=== PATIENT | male | born 2000 | race African-American/Black ===

== ENCOUNTER 2023-06-23 14:16 | Emergency (ER) | payer SELFPAY ==
[~2023-06-23] VITALS: Ht 193 cm; Wt 86.2 kg
[2023-06-23 14:35] VITALS: BP 130/90; PULSE 75; RESP 18; TEMP 98; O2SAT 96
[2023-06-23] MEDS ORDERED: VIB100 PO (15:23)
[2023-06-23 15:33] LABS: APPEARANCE,URINE CLEAR (CLEAR); BILIRUBIN,URINE NEGATIVE (NEGATIVE); BLOOD, URINE NEGATIVE (NEGATIVE); COLOR,URINE YELLOW (YELLOW); LEUKOCYTE ESTERASE ,URINE TRACE (NEGATIVE); NITRITE, URINE NEGATIVE (NEGATIVE); PROTEIN,URINE NEGATIVE (NEGATIVE); UGLUCOSE NEGATIVE (NEGATIVE)
[2023-06-23] MEDS ORDERED: cefTRIAXone 500 MG VIAL ONE (15:48)
[2023-06-23] MEDS ORDERED: LIDOCAINE MPF 1% 5 ML ONE (15:48)
[2023-06-23] MEDS: cefTRIAXone 500 MG in LIDOCAINE MPF 1% 1 ML IM ONE (15:53)
[2023-06-23 16:30] LABS: BACTERIA,URINE FEW /HPF (None Seen); RBC,URINE NONE SEEN /HPF (0-5); SQUAMOUS EPITHELIAL CELL,UR 0-3 (FEW) /LPF (0-3 (FEW))
[2023-06-23 16:44] VITALS: BP 128/88; PULSE 75; RESP 18; TEMP 98; O2SAT 98
== END 2023-06-23 16:44 | disposition home or self-care (01) ==
LOC: MED 14:16
DX: Z00.8 Encounter for other general examination (principal)
CPT/HCPCS: 81001; 87086; 87491; 96372; 99283; J0696; J2001